=== PATIENT | male | born 1955 | race Caucasian/White ===

== ENCOUNTER 2024-10-21 06:11 | Day surgery (SDC) | payer MEDICARE ==
[2024-10-21] MEDS ORDERED: fentaNYL 100 MCG/2 ML SDV IV ONE (06:12)
[2024-10-21] MEDS ORDERED: Glycopyrrolate 0.2 MG/ML 5 ML MDV IV ONE (06:12)
[2024-10-21] MEDS ORDERED: ePHEDrine 50 MG/ML SDV IV ONE (06:12)
[2024-10-21] MEDS ORDERED: Midazolam 1 MG/ML 2 ML SDV IV ONE (06:12)
[2024-10-21] MEDS ORDERED: Ondansetron 4 MG/2 ML SDV IVPUSH ONE (06:12)
[2024-10-21] MEDS ORDERED: Ketorolac 30 MG/ML SDV IVPUSH ONE (06:12)
[2024-10-21] MEDS ORDERED: Propofol 200 MG/20 ML SDV IV ONE (06:12)
[2024-10-21] MEDS ORDERED: Sodium Chloride 0.9% 10 ML Syringe FLUSH PRN (06:15)
[2024-10-21] MEDS: Lactated Ringers 1,000 ML IV SCH (06:49)
[2024-10-21] MEDS: ceFAZolin 1 GM Vial IVPUSH ONE (07:30)
[2024-10-21] MEDS: Bupivacaine 0.5% 30 ML SDV INJECT ONE (07:50)
[2024-10-21] MEDS: Lidocaine 1% with EPINEPHrine 1:100,000 20 ML MDV INJECT ONE (07:50)
[2024-10-21 10:56] VITALS: BP 149/81; PULSE 60
== END 2024-10-21 10:50 | disposition home or self-care (01) ==
LOC: FB.SDS 06:11
PROVIDERS: ATTEND Surgery
DX: K42.9 Umbilical hernia without obstruction or gangrene (principal); I10 Essential (primary) hypertension; E78.5 Hyperlipidemia, unspecified; Z79.899 Other long term (current) drug therapy
CPT/HCPCS: 00832; 99100; J0665; J0690; J1596; J1885; J2004; J2250; J2405; J2704; J3010; J7120

== ENCOUNTER 2025-05-08 06:46 | Day surgery (SDC) | payer MEDICARE ==
[2025-05-08] MEDS ORDERED: Midazolam 1 MG/ML 2 ML SDV IV ONE (06:47)
[2025-05-08] MEDS ORDERED: Propofol 200 MG/20 ML SDV IV ONE (06:47)
[2025-05-08] MEDS ORDERED: fentaNYL 100 MCG/2 ML SDV IV ONE (06:47)
[2025-05-08] MEDS ORDERED: Sodium Chloride 0.9% 10 ML Syringe FLUSH PRN (07:00)
[2025-05-08 07:28] VITALS: BP 138/91; PULSE 68
[2025-05-08] MEDS: Lactated Ringers 1,000 ML IV SCH (07:47)
== END 2025-05-08 10:48 | disposition home or self-care (01) ==
LOC: FB.SDS 06:46
PROVIDERS: ATTEND Surgery
DX: Z12.11 Encounter for screening for malignant neoplasm of colon (principal); D12.6 Benign neoplasm of colon, unspecified; K57.30 Diverticulosis of large intestine without perforation or abscess without bleeding; I10 Essential (primary) hypertension; Z79.82 Long term (current) use of aspirin; Z79.899 Other long term (current) drug therapy
CPT/HCPCS: 00811; 45385; 88305; 99100; A9270; J2250; J2704; J3010; J7120